=== PATIENT | female | born 1945 | race Caucasian/White ===

== ENCOUNTER 2022-01-19 10:00 | Outpatient (CLI) | payer MEDICARE, SELFPAY ==
--- NOTE | ~2022-01-19 | XR_ITS ---
EXAMINATION: XR hand BI arthritis min 3V DATE: 01/19/2022 10:38 INDICATION: Unspecified osteoarthritis, unspecified site. TECHNIQUE: 4 views of right hand and 4 views of left hand on 7 radiographs were obtained. COMPARISON: None. FINDINGS: RIGHT HAND: There is ulnar subluxation of fourth middle phalanx with respect to the proximal phalanx. No fracture. There is severe osteoarthritis of triscaphe joint and scaphoid-capitate and lunocapitat e joints. There is mild osteoarthritis of first carpometacarpal joint. There is moderate osteoarthrit is of second and third metacarpophalangeal joints and mild osteoarthritis of first and fourth metacar pophalangeal joints. There is osteoarthritis of all of the interphalangeal joints, severe at first in terphalangeal joint, second and third distal interphalangeal joints, and fourth proximal interphalang eal joint. LEFT HAND: Bone alignment is normal. No fracture. There is severe osteoarthritis of lunate-capitate j oint and moderate osteoarthritis of scaphoid-capitate joint. There is severe osteoarthritis of trisca phe joint and first carpometacarpal joint. There is moderate osteoarthritis of first metacarpophalang eal joint and mild osteoarthritis of the other metacarpophalangeal joints. There is osteoarthritis of all of the interphalangeal joints, severe at second and third distal interphalangeal joints and fift h proximal interphalangeal joint. IMPRESSION: 1. Polyarticular osteoarthritis. Reviewed, dictated and finalized at location A. ODITIES CLERK
--- NOTE | ~2022-01-19 | XR_ITS ---
EXAMINATION: XR foot RT standing 2V DATE: 01/19/2022 10:39 INDICATION: Other specified abnormal immunological findings. TECHNIQUE: 2 views of right foot standing were obtained. COMPARISON: None. FINDINGS: Pes planus is noted. No fracture. There is severe osteoarthritis of second and third tarsom etatarsal joints. There is mild to moderate osteoarthritis of other midfoot joints. There is mild ost eoarthritis of first and second metatarsophalangeal joints and some of the interphalangeal joints. Th ere are periarticular calcifications at first metatarsophalangeal joint. There is an enthesophyte at plantar aspect of calcaneal tuberosity. IMPRESSION: 1. Polyarticular osteoarthritis. 2. Pes planus. Reviewed, dictated and finalized at location A. ER DEPOSIT OPERATOR
--- NOTE | ~2022-01-19 | XR_ITS ---
EXAMINATION: XR foot LT standing 2V DATE: 01/19/2022 10:39 INDICATION: Other specified abnormal immunological findings. TECHNIQUE: 2 views of left foot standing were obtained. COMPARISON: None. FINDINGS: Pes planus is noted. There are changes of healed fusion procedure at first tarsometatarsal joint with 2 lag screws. There is severe osteoarthritis of second and third tarsometatarsal joints an d moderate osteoarthritis of fourth and fifth tarsometatarsal joints. There are changes of bunionecto my. There is a lag screw in first proximal phalanx. There is mild osteoarthritis of first metatarsoph alangeal joint and some of the interphalangeal joints. IMPRESSION: 1. Polyarticular osteoarthritis. 2. Pes planus. 3. Arthrodesis of first tarsometatarsal joint. Reviewed, dictated and finalized at location A. RIFUGAL CHILLER TECHNICIAN
== END 2022-01-19 10:01 | disposition home or self-care (01) ==
PROVIDERS: Visit Provider Internal Medicine
DX: S63.204A Unspecified subluxation of right ring finger, initial encounter (principal); M19.042 Primary osteoarthritis, left hand; M19.041 Primary osteoarthritis, right hand; M18.0 Bilateral primary osteoarthritis of first carpometacarpal joints; M19.072 Primary osteoarthritis, left ankle and foot; M19.071 Primary osteoarthritis, right ankle and foot; M21.42 Flat foot [pes planus] (acquired), left foot; M21.41 Flat foot [pes planus] (acquired), right foot; R76.8 Other specified abnormal immunological findings in serum
CPT/HCPCS: 73130; 73620